=== PATIENT | male | born 1995 ===

== ENCOUNTER 2020-11-07 21:57 | Emergency (ER) | payer OTHER ==
[~2020-11-07] VITALS: Ht 172.7 cm; Wt 63.5 kg
--- NOTE | 2020-11-07 22:15 | NUR ---
DR SHEIKH INTO EVAL PATIENT.
--- NOTE | 2020-11-07 22:52 | NUR ---
MEDICALLY CLEARED BY DR SHEIKH TO BE BOOKED BY YOANDY.
--- NOTE | 2020-11-07 22:56 | NUR ---
Patient discharged to [facility] in stable condition. Written and verbal after care instructions given OFFICER. Patient verbalizes understanding of instructions. Stressed follow up or return to ER for worsening s/s.
[2020-11-07 22:57] VITALS: BP 128/85
== END 2020-11-07 22:58 ==
LOC: ER 22:01
DX: F15.10 Other stimulant abuse, uncomplicated (principal); M25.571 Pain in right ankle and joints of right foot
CPT/HCPCS: A4663